=== PATIENT | male | born 1975 | race Caucasian/White ===

== ENCOUNTER → 2018-06-03 | Outpatient (CLI) | payer BC | LOC: COL.RAD 09:26 | DX: M99.71 Connective tissue and disc stenosis of intervertebral foramina of cervical region (principal); M50.223 Other cervical disc displacement at C6-C7 level; M47.812 Spondylosis without myelopathy or radiculopathy, cervical region; M12.88 Other specific arthropathies, not elsewhere classified, other specified site; M54.41 Lumbago with sciatica, right side ==

== ENCOUNTER → 2018-09-17 | Outpatient (CLI) | payer OTHER, BC | LOC: MHCPAIN 09:51 | DX: G89.29 Other chronic pain (principal); M54.12 Radiculopathy, cervical region; M47.812 Spondylosis without myelopathy or radiculopathy, cervical region | CPT/HCPCS: G0463 ==

== ENCOUNTER → 2022-03-20 | Outpatient (CLI) | payer BC ==
--- NOTE | 2022-03-16 08:58 | NUR ---
MAIL BOX IS FULL
[2022-03-20 11:27] VITALS: BP 110/67; PULSE 70
[2022-03-20 11:30] VITALS: BP 132/66; PULSE 99
[2022-03-20 11:31] VITALS: BP 141/66; PULSE 91
[2022-03-20 11:32] VITALS: BP 110/69; PULSE 85
[2022-03-20 11:33] VITALS: BP 119/75; PULSE 90
== END ==
LOC: COL.CARD 09:40
DX: R07.9 Chest pain, unspecified (principal)
CPT/HCPCS: A9500